=== PATIENT | female | born 1995 | race Caucasian/White ===

== ENCOUNTER 2021-01-18 11:55 | Outpatient (CLI) | payer OTHER | END 2021-01-18 12:33 | disposition home or self-care (01) | LOC: NST 11:55 | PROVIDERS: ATTEND Obstetrics & Gynecology | DX: Z34.83 Encounter for supervision of other normal pregnancy, third trimester (principal) ==

== ENCOUNTER 2021-01-24 11:43 | Outpatient (CLI) | payer OTHER | END 2021-01-24 13:09 | disposition home or self-care (01) | LOC: NST 11:43 | PROVIDERS: ATTEND Obstetrics & Gynecology | DX: Z34.83 Encounter for supervision of other normal pregnancy, third trimester (principal) ==

== ENCOUNTER 2021-01-30 05:26 | Inpatient (IN) | payer OTHER ==
[~2021-01-30] VITALS: Ht 167.6 cm; Wt 80.3 kg
[2021-01-30] MEDS ORDERED: PRENATAL TABLE1 EAC1 PO (06:03)
== END 2021-02-01 12:27 | disposition home or self-care (01) | DRG 807 ==
LOC: LDR 05:26 → OB/GYN 05:26
PROVIDERS: ADMIT Obstetrics & Gynecology Maternal & Fetal Medicine; ATTEND Obstetrics & Gynecology Maternal & Fetal Medicine
PROC: 10E0XZZ Delivery of Products of Conception, External Approach (ICD-10-PCS; principal; 2021-01-30)
PROC: 4A1HXFZ Monitoring of Products of Conception, Cardiac Rhythm, External Approach (ICD-10-PCS; 2021-01-30)
PROC: 3E033VJ Introduction of Other Hormone into Peripheral Vein, Percutaneous Approach (ICD-10-PCS; 2021-01-30)
DX: O70.0 First degree perineal laceration during delivery (principal); Z37.0 Single live birth; Z3A.39 39 weeks gestation of pregnancy

== ENCOUNTER 2023-05-11 13:26 | Outpatient (CLI) | payer OTHER ==
[~2023-05-11 13:26] MED LIST: PRENATAL TABLE1 EAC1 PO
== END 2023-05-11 13:28 | disposition home or self-care (01) ==
LOC: LAB 13:26
PROVIDERS: ATTEND Student in an Organized Health Care Education/Training Program
DX: J11.1 Influenza due to unidentified influenza virus with other respiratory manifestations (principal); J11.2 Influenza due to unidentified influenza virus with gastrointestinal manifestations

== ENCOUNTER 2023-10-26 15:59 | Emergency (ER) | payer OTHER ==
[~2023-10-26] VITALS: Ht 91.4 cm; Wt 14.5 kg
[2023-10-26] MEDS ORDERED: NEOMYCIN/BACITRACIN/POLYMYXINB 28.35 GM OINT..GM. TOP STA (16:56)
[2023-10-26] MEDS ORDERED: BACITRACIN-NEOMYCIN-POLYMYXIN 0.9 GM PACKET TOP ONE (17:31)
== END 2023-10-26 18:22 | disposition home or self-care (01) ==
LOC: ER 16:00 → EMR PED 16:19 → ER 16:19 → EMR PED 18:22
DX: S61.216A Laceration without foreign body of right little finger without damage to nail, initial encounter (principal); X58.XXXA Exposure to other specified factors, initial encounter; Y93.89 Activity, other specified; Y92.89 Other specified places as the place of occurrence of the external cause; Y99.9 Unspecified external cause status

== ENCOUNTER 2023-11-16 10:13 | Emergency (ER) | payer OTHER ==
[~2023-11-16] VITALS: Ht 94 cm; Wt 14.5 kg
[2023-11-16] MEDS ORDERED: ONDANSETRON HCL 2 MG/ML VIAL IM STA (11:03)
[2023-11-16 11:38] LABS: HEMATOCRIT 34.4 % (36.0-45.00); HEMOGLOBIN 11.6 g/dL (12.0-15.00); MEAN CELL VOLUME 74.4 fL (80.00-100.00); MEAN CORPUSCULAR HGB CONC 33.6 g/dl (32.0-36.0); PLATELET COUNT 306 K/uL (150-450); RED BLOOD COUNT 4.63 M/uL (4.00-6.00); RED CELL DISTRIBUTION WIDTH 15.5 % (11.5-14.5)
== END 2023-11-16 13:39 | disposition home or self-care (01) ==
LOC: ER 10:15 → EMR PED 10:15
PROVIDERS: Emergency Medicine Pediatric Emergency Medicine
DX: J02.9 Acute pharyngitis, unspecified (principal); Z20.822 Contact with and (suspected) exposure to COVID-19